=== PATIENT | male | born 1955 ===

== ENCOUNTER 2018-05-16 08:32 | Emergency (ER) | payer SELFPAY ==
[2018-05-16 08:48] VITALS: BP 146/99
--- NOTE | 2018-05-16 09:06 | UC ---
Skin Complaint HPI - HPI Summary HPI Summary: pt started with itchy rash on legs and abd about 1 week ago. very itchy, using calamine lotion with little relief. rash seems to be spreading over body no SOB or diff breathing has not used any new meds, personal care items, detergents/soaps, foods or OTCs no recent illness - History of Current Complaint Chief Complaint: UCRash Time Seen by Provider: 05/16/18 08:33 Stated Complaint: RASH Hx Obtained From: Patient Onset/Duration: Gradual Onset Onset Severity: Mild Current Severity: Moderate Pain Intensity: 8 Location: Diffuse Character: Pruritus, Hives Aggravating Factor(s): Nothing Alleviating Factor(s): Nothing Associated Signs & Symptoms: Positive: Negative Similar Episode/Dx as: allergy - Allergy/Home Medications Allergies/Adverse Reactions: Allergies Allergy/AdvReac Type Severity Reaction Status Date / Time atorvastatin [From Lipitor] Allergy See Comment Verified 05/16/18 08:49 Home Medications: Home Medications Multivit-Min/FA/Lycopen/Lutein [Centrum Silver Men Tablet] 1 each PO 05/16/18 [ History] PMH/Surg Hx/FS Hx/Imm Hx Previously Healthy: Yes Endocrine History: Dyslipidemia - Surgical History Surgical History: Yes Surgery Procedure, Year, and Place: benign tumur to lt side, removed that caused an ulcer to stomach and as a result half of stomach surgically removed. 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 Negative: Fever Skin: Positive: Rash ENT: Positive: Negative Respiratory: Positive: Negative Cardiovascular: Positive: Negative Genitourinary: Positive: Negative Musculoskeletal: Positive: Negative. Negative: Arthralgia Neurological: Positive: Negative. Negative: Headache Psychological: Positive: Negative Is Patient Immunocompromised?: No Physical Exam Triage Information Reviewed: Yes Appearance: Well-Appearing, No Pain Distress, Well-Nourished Vital Signs: Initial Vital Signs Temp 97.6 F 05/16/18 08:42 Pulse 82 05/16/18 08:42 Resp 18 01/26/19 08:42 BP 146/99 05/16/18 08:42 Pulse Ox 98 05/16/18 08:42 Vital Signs Reviewed: Yes Eyes: Positive: Conjunctiva Clear ENT: Positive: Pharynx normal Neck exam: Normal Neck: Positive: No Lymphadenopathy Respiratory Exam: Normal Respiratory: Positive: Lungs clear Cardiovascular Exam: Normal Cardiovascular: Positive: RRR, No Murmur Musculoskeletal Exam: Normal Musculoskeletal: Positive: ROM Intact, No Edema Neurological Exam: Normal Neurological: Positive: Alert Psychological Exam: Normal Skin: Positive: Rashes - urticaria trunk, legs, arms Course/Dx - Differential Diagnoses - Skin Complaint Differential Diagnoses: Allergic Reaction, Cellulitis, Drug Rash, Tick Born Illness, Urticaria - Diagnoses Provider Diagnosis: Urticaria Discharge - Sign-Out/Discharge Documenting (check all that apply): Patient Departure All imaging exams completed and their final reports reviewed: No Studies - Discharge Plan Condition: Good Disposition: HOME Prescriptions: methylPREDNISolone [Medrol Dosepak 4 MG*] 0 mg PO .SEE LIANE INSTRUCTION #1 liane Patient Education Materials: Urticaria (ED) Forms: *Work Release Referrals: Odell Razo RPA [Primary Care Provider] - 2 Days (if no better) Additional Instructions: use medrol dose liane as directed use benadryl 50mg every 4-6 hours as needed for itchy rash (this may make you tired) use Claritin 10mg (should not make you tired) once a day for itch (do not take with benadryl) report to ER if your rash worsens or other symptoms occur - Billing Disposition and Condition Condition: GOOD Disposition: Home
== END 2018-05-16 09:20 | disposition home or self-care (01) ==
LOC: UCEAST 08:32
DX: L50.9 Urticaria, unspecified (principal); F17.210 Nicotine dependence, cigarettes, uncomplicated; Z88.8 Allergy status to other drugs, medicaments and biological substances
CPT/HCPCS: 99202; G0463

== ENCOUNTER 2018-05-27 16:34 | Emergency (ER) | payer SELFPAY ==
[2018-05-27 16:44] VITALS: BP 128/82
--- NOTE | 2018-05-27 16:58 | UC ---
Skin Complaint HPI - HPI Summary HPI Summary: 62 y/o male presents to the urgent care c/o diffuse rash in his back and abdomen for the past 12 days with a lot of itchiness. Pt reports he was seen here at the clinic on 05/16/2018 and Dx with allergic reaction and Rx Medrol dose pack. Rash was improving the first couples of days. He finished the medication and itching has worsen and now spreading more. He has applied Caladryl topical lotion also. Pt denies recent travel, changeing of medication, eating outside or using new detergents or body lotions. Pt denies fever, SOB, throat tightening, RIDLEY, dizziness, neck pain abdominal pain, chest pain, N/V/D or Hx of STD's. - History of Current Complaint Chief Complaint: UCRash Time Seen by Provider: 05/27/18 16:55 Stated Complaint: RASH Hx Obtained From: Patient Onset/Duration: Gradual Onset, Lasting Days - 12 days, Still Present Skin Exposure Onset/Duration: Days Ago - 12 days Onset Severity: Mild Current Severity: Moderate Pain Intensity: 0 Pain Scale Used: 0-10 Numeric Location: Diffuse - in back and abdomen Character: Pruritus, Hives, Redness Aggravating Factor(s): Touch Alleviating Factor(s): Antihistamines, OTC Creams/Salves Associated Signs & Symptoms: Positive: Rash. Negative: Nausea, Vomiting, Difficulty Breathing, Fever, Chills, Chest Pain, Throat Tightening, Drainage, Tenderness Related History: Possible Reaction to: Environmental Exposure - Allergy/Home Medications Allergies/Adverse Reactions: Allergies Allergy/AdvReac Type Severity Reaction Status Date / Time atorvastatin [From Lipitor] Allergy See Comment Verified 05/16/18 08:49 Home Medications: Home Medications Panax Ginseng Root Extract [Ginseng Extract] 50 mg PO DAILY 05/27/18 [History Confirmed 05/27/18] PMH/Surg Hx/FS Hx/Imm Hx Previously Healthy: Yes Respiratory History: COPD - Surgical History Surgical History: Yes Surgery Procedure, Year, and Place: benign tumur to lt side, removed that caused an ulcer to stomach and as a result half of stomach surgically removed. - Family History Known Family History: Positive: Hypertension - Social History Occupation: Unemployed Lives: With Family Alcohol Use: Rare Substance Use Type: None Smoking Status (MU): Heavy Every Day Tobacco Smoker Type: Cigarettes Household Exposure Type: Cigarettes Review of Systems All Other Systems Reviewed And Are Negative: Yes Constitutional: Positive: Negative Skin: Positive: Rash - diffuese itchy rash in abdmen and back Eyes: Positive: Negative ENT: Positive: Negative Respiratory: Positive: Negative Cardiovascular: Positive: Negative Gastrointestinal: Positive: Negative Genitourinary: Positive: Negative Motor: Positive: Negative Neurovascular: Positive: Negative Musculoskeletal: Positive: Negative Neurological: Positive: Negative Psychological: Positive: Negative Is Patient Immunocompromised?: No Physical Exam - Summary Physical Exam Summary: Vital Signs Reviewed: Yes General: well appearing, well nourished male in no acute apparent pain distress , sitting comfortably on examining table Eye Exam: Normal Eyes: Positive: Conjunctiva Clear - PERRLA< EOMI, fundi grossly normal ENT: Positive: Normal ENT inspection, Hearing grossly normal, Pharynx normal, TMs normal Neck: Positive: Supple, Nontender, No Lymphadenopathy Respiratory: Positive: Chest non-tender, Lungs clear, Normal breath sounds, No respiratory distress Cardiovascular: Positive: RRR, No Murmur, Pulses Normal, Brisk Capillary Refill Abdomen Description: Positive: Nontender, No Organomegaly, Soft. Negative: CVA Tenderness (R), CVA Tenderness (L) Bowel Sounds: Positive: Present Musculoskeletal: Positive: Strength Intact, ROM Intact, No Edema Neurological: Positive: Alert, Muscle Tone Normal Psychological Exam: Normal Skin: Positive:Abdomen, chest , upper back w/ and erythematous eruptions with hives and congruent large oval spots or welts, no drainage observed, signs of excoriation observed Triage Information Reviewed: Yes Vital Signs: Initial Vital Signs Temp 98.2 F 05/27/18 16:41 Pulse 70 05/27/18 16:41 Resp 16 05/27/18 16:41 BP 128/82 05/27/18 16:41 Pulse Ox 100 05/27/18 16:41 Course/Dx - Course Course Of Treatment: 62 y/o male presents to the urgent care c/o diffuse rash in his back and abdomen for the past 12 days with a lot of itchiness. Pt reports he was seen here at the clinic on 05/16/2018 and Dx with allergic reaction and Rx Medrol dose pack. Rash was improving the first couples of days. He finished the medication and itching has worsen and now spreading more. He has applied Caladryl topical lotion also. Pt denies recent travel, changeing of medication, eating outside or using new detergents or body lotions. Pt denies fever, SOB, throat tightening, RIDLEY, dizziness, neck pain abdominal pain, chest pain, N/V/D or Hx of STD's.Hx obtained. Pt w/ urticaria on back and abdomen due to unknown allergen on examination. However it some areas of upper back there are some scattered erythematous welts possble EM.Pt is Hemodynamically stable. Pt Rx Prednisone and Triamcinolone topical cream PO, Benadryl PO as directed below. Pt given referral w/ [facility] Dr Souza for further evaluation and treatment if not improvment in 3 days. D/C instructions explained. PT understood and agreed w/ plan of care. - Differential Diagnoses - Skin Complaint Differential Diagnoses: Contact Dermatitis, Local Allergic Reaction, Tinea, Urticaria - Diagnoses Provider Diagnosis: Rash and nonspecific skin eruption Discharge - Sign-Out/Discharge Documenting (check all that apply): Patient Departure - D/c home All imaging exams completed and their final reports reviewed: No Studies - Discharge Plan Condition: Stable Disposition: HOME Prescriptions: diPHENhydraMINE PO* [Benadryl PO 25 MG TAB*] 25 mg PO Q6H PRN #30 tab PRN Reason: pruritus predniSONE TAB* [Deltasone 20 MG TAB*] 20 mg PO DAILY #11 tab Triamcinolone 0.1% CREAM(NF) [Kenalog Cream 0.1%(NF)] 1 applic TOPICAL BID #1 tube Patient Education Materials: Acute Rash (ED) Referrals: Sandrita Souza [Medical Doctor] - 3 Days Odell Razo RPA [Primary Care Provider] - 3 Days Additional Instructions: 1-Please Start taking Prednisone PO as directed. 2- Continue taking Benadryl PO to alleviate itchiness. Apply topical cream as directed. Avoid exposure to the sun. 3-If symptoms do not improve or worsen please f/u with your PCP or [facility] Dr Souza in 3 days for further evaluation and treatment. 4- If symptoms worsen and you develop SOB or difficulty breathing please go immediately to the Er for further management. - Billing Disposition and Condition Condition: STABLE Disposition: Home
== END 2018-05-27 17:40 | disposition home or self-care (01) ==
LOC: UCEAST 16:34
DX: R21 Rash and other nonspecific skin eruption (principal); F17.210 Nicotine dependence, cigarettes, uncomplicated; Z88.8 Allergy status to other drugs, medicaments and biological substances
CPT/HCPCS: 99212; G0463